=== PATIENT | female | born 1970 | race Hispanic/Latino ===

== ENCOUNTER 2016-09-28 17:27 | Emergency (ER) | payer OTHER ==
[2016-09-28 17:42] VITALS: TEMP 97.4
--- NOTE | 2016-09-28 17:53 | ED.PDOC ---
History of Present Illness - General Chief Complaint: Cardiovascular Problem Stated Complaint: headache Time Seen by Provider: 09/28/16 17:45 Source: patient Exam Limitations: no limitations - History of Present Illness Initial Comments: The patient is a 46-year-old female presenting to the emergency room secondary to persistent headache and persistent mild to moderate elevation in her blood pressure. The patient went to her primary care doctor and received injections of what I believe was Toradol and Phenergan this morning for her headache. She went home and slept and the headache was better for a little while but it has come back this afternoon. No nausea or vomiting or abdominal pain or chest pain today but the patient did have some mild nausea and vomiting yesterday with some substernal chest pain radiating to her back yesterday that coincided with the nausea and vomiting. No leg pain or swelling. No shortness of breath. No syncope or near syncope. She does not think that she has had a fever. She does not normally have heartburn problems. She is on a butrans patch for chronic pain. she did recently have this dose increased. Blood pressures have been in the 160s over 100s. She is also a type II diabetic but has not checked her blood sugar today. Apparently her blood sugars were good yesterday. she reports that she has had migraines but not has not had any formal neurological workup to that end and does not have any medications dedicated for treatment of that problem. Timing/Duration: 4-6 hours Severity: moderate Improving Factors: nothing Worsening Factors: nothing Associated Symptoms: headaches, loss of appetite, malaise, nausea/vomiting Allergies/Adverse Reactions: Allergies NO KNOWN ALLERGY Allergy (Verified 01/30/16 17:12) Home Medications: Ambulatory Orders Citalopram Hydrobromide 20 mg PO DAILY 12/14/14 Lisinopril/Hctz 20-12.5 mg [Zestoretic 20/12.5] 1 ea PO DAILY 12/14/14 Metformin HCl 500 mg PO BID 12/14/14 Oxycodone W/ Acetaminophen [Oxycodone/Acetaminophen] 1 tab PO Q4H PRN 12/14/14 Trazodone HCl 150 mg PO BEDTIME 12/14/14 tiZANidine [Zanaflex] 4 mg PO TID PRN 12/14/14 Gabapentin [Neurontin] 600 mg PO TID 01/30/16 Levothyroxine Sodium [Synthroid] 75 mcg PO DAILY 01/30/16 Meloxicam [Mobic] 15 mg PO DAILY #15 tab 01/30/16 Review of Systems - Review of Systems Constitutional: States: malaise EENTM: States: no symptoms reported Respiratory: States: no symptoms reported Cardiology: States: chest pain - yesterday brieflywith nausea and vomiting Gastrointestinal/Abdominal: States: nausea, vomiting Genitourinary: States: no symptoms reported Musculoskeletal: States: no symptoms reported Skin: States: no symptoms reported Neurological: States: headache Endocrine: States: no symptoms reported All other Systems: No Change from Baseline Past Medical History (General) - Patient Medical History Hx Seizures: No Hx Stroke: No Hx Dementia: No Hx Asthma: No Hx of COPD: No Hx Cardiac Disorders: No Hx Congestive Heart Failure: No Hx Pacemaker: No Hx Hypertension: Yes Hx Thyroid Disease: Yes Hx Diabetes: Yes Hx Gastroesophageal Reflux: Yes Hx Renal Disease: No Hx Cancer: No Hx of HIV: No Hx Hepatitis C: No Hx MRSA: No - Vaccination History Hx Tetanus, Diphtheria Vaccination: No Hx Influenza Vaccination: Yes - 2015 Hx Pneumococcal Vaccination: Yes - Social History Hx Tobacco Use: Yes Hx Chewing Tobacco Use: No Hx Alcohol Use: No Hx Substance Use: No Hx Substance Use Treatment: No Hx Depression: Yes Hx Physical Abuse: No Hx Emotional Abuse: No Family Medical History - Family History Mother Living Status: Hx Family Cancer: Yes - lung cancer Physical Exam - Physical Exam General Appearance: Alert, Comfortable, No apparent distress Eye Exam: bilateral normal Ears, Nose, Throat: hearing grossly normal, normal ENT inspection, normal pharynx Neck: non-tender, full range of motion, supple Respiratory: chest non-tender, lungs clear, normal breath sounds, no respiratory distress, no accessory muscle use Cardiovascular/Chest: normal peripheral pulses, regular rate, rhythm, no edema Peripheral Pulses: radial,right: 2+, radial,left: 2+, dorsalis pedis,right: 2+, dorsalis pedis,left: 2+, posterior tibialis,right: 2+, posterior tibialis,left: 2+ Gastrointestinal/Abdominal: non tender, soft Rectal Exam: deferred Back Exam: normal inspection, no CVA tenderness, no vertebral tenderness Extremity: normal range of motion, non-tender, normal inspection, no pedal edema , normal capillary refill 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 The patient received a liter of IV fluids along with several medications and is feeling significantly better at this time. She needs to keep well hydrated and follow blood sugars closely. Gastrointestinal symptoms seem to have resolved. She needs to try and get a good night sleep. She should follow-up with her primary care doctor tomorrow or the next day. ER warnings were given for any acute worsening. Lab work is reassuring here today. Blood pressures are mildly elevated today and should be followed with her primary care doctor. additional medications do not appear to be warranted at this time. 09/28/16 18:45 - Results/Orders Results/Orders: Laboratory Tests 09/28/16 09/28/16 09/28/16 17:46 18:00 18:00 WBC RBC Hgb Hct MCV MCH MCHC RDW Plt Count MPV Absolute Neuts (auto) Absolute Lymphs (auto) Absolute Monos (auto) Absolute Eos (auto) Absolute Basos (auto) Neutrophils % Lymphocytes % Monocytes % Eosinophils % Basophils % Sodium 138 Potassium 3.9 Chloride 105 Carbon Dioxide 24 Anion Gap 12.9 BUN 19 H Creatinine 0.72 BUN/Creatinine Ratio 26.4 H Random Glucose 181 H Serum Osmolality 282.5 Calcium 9.1 Total Bilirubin 0.6 AST 19 ALT 12 Alkaline Phosphatase 43 Creatine Kinase 41 CK-MB (CK-2) 0.9 CK-MB (CK-2) % Not Reportable Troponin I < 0.02 Serum Total Protein 6.8 Albumin 3.7 Globulin 3.1 Albumin/Globulin Ratio 1.2 Amylase 53 Lipase 27 Serum HCG, Qual Negative Urine HCG, Qual Cancelled 09/28/16 18:00 WBC 7.5 RBC 5.33 Hgb 15.2 Hct 46.1 MCV 86.4 MCH 28.6 MCHC 33.1 RDW 13.8 Plt Count 264 MPV 7.8 Absolute Neuts (auto) 4.40 Absolute Lymphs (auto) 2.40 Absolute Monos (auto) 0.60 Absolute Eos (auto) 0.10 Absolute Basos (auto) 0.10 Neutrophils % 57.9 Lymphocytes % 31.3 Monocytes % 7.9 Eosinophils % 2.0 Basophils % 0.9 Sodium Potassium Chloride Carbon Dioxide Anion Gap BUN Creatinine BUN/Creatinine Ratio Random Glucose Serum Osmolality Calcium Total Bilirubin AST ALT Alkaline Phosphatase Creatine Kinase CK-MB (CK-2) CK-MB (CK-2) % Troponin I Serum Total Protein Albumin Globulin Albumin/Globulin Ratio Amylase Lipase Serum HCG, Qual Urine HCG, Qual Departure - Departure Clinical Impression: Dehydration, mild Headache, tension-type Qualifiers: Headache chronicity pattern: acute headache Intractability: not intractable Qualified Code(s): G44.209 - Tension-type headache, unspecified, not intractable Disposition: Discharge to Home or Self Care Condition: Fair Departure Forms: ED Discharge - Pt. Copy, Patient Portal Self Enrollment Instructions: Tension Headache, DI for Viral Gastroenteritis -- Adult Diet: diabetic diet Referrals: Nicolette Painting NP [Primary Care Provider] - 1-2 Weeks Home Medications: Ambulatory Orders Citalopram Hydrobromide 20 mg PO DAILY 12/14/14 Lisinopril/Hctz 20-12.5 mg [Zestoretic 20/12.5] 1 ea PO DAILY 12/14/14 Metformin HCl 500 mg PO BID 12/14/14 Oxycodone W/ Acetaminophen [Oxycodone/Acetaminophen] 1 tab PO Q4H PRN 12/14/14 Trazodone HCl 150 mg PO BEDTIME 12/14/14 tiZANidine [Zanaflex] 4 mg PO TID PRN 12/14/14 Gabapentin [Neurontin] 600 mg PO TID 01/30/16 Levothyroxine Sodium [Synthroid] 75 mcg PO DAILY 01/30/16 Meloxicam [Mobic] 15 mg PO DAILY #15 tab 01/30/16 Additional Instructions: The patient is a 46-year-old female presenting with a headache today after having symptoms of gastroenteritis yesterday. The patient received a liter of IV fluids along with several medications and is feeling significantly better at this time. She needs to keep well hydrated and follow blood sugars closely. Gastrointestinal symptoms seem to have resolved. She needs to try and get a good night sleep. She should follow-up with her primary care doctor tomorrow or the next day. ER warnings were given for any acute worsening. Lab work is reassuring here today. Blood pressures are mildly elevated today and should be followed with her primary care doctor. additional medications do not appear to be warranted at this time.
[2016-09-28] MEDS: ACETAMINOPHEN 325 MG TAB PO ONE (17:55)
[2016-09-28] MEDS: SODIUM CHLORIDE 0.9% 1000ML 1,000 ML IVS ONE (17:55)
[2016-09-28] MEDS: METOCLOPRAMIDE HCL INJ 10 MG/2 ML VIAL IV ONE (17:55)
[2016-09-28] MEDS: KETOROLAC TROMETHAMINE INJ 30 MG/ML VIAL IV ONE (17:56)
[2016-09-28 18:58] VITALS: O2SAT 98
[2016-09-28 19:00] VITALS: BP 154/98
== END 2016-09-28 18:59 | disposition home or self-care (01) ==
LOC: ER 17:27
DX: G44.209 Tension-type headache, unspecified, not intractable (principal); E86.0 Dehydration; I10 Essential (primary) hypertension; E07.9 Disorder of thyroid, unspecified; E11.9 Type 2 diabetes mellitus without complications; K21.9 Gastro-esophageal reflux disease without esophagitis; Z87.891 Personal history of nicotine dependence; Z80.1 Family history of malignant neoplasm of trachea, bronchus and lung; Z79.899 Other long term (current) drug therapy
CPT/HCPCS: 36415; 80053; 81001; 82150; 82550; 82553; 83690; 84484; 84703; 85025; 87086; 87088; 87186; J1885; J2765; J7030

== ENCOUNTER → 2016-10-29 | Outpatient (CLI) | payer OTHER | END | disposition home or self-care (01) | LOC: LAB.O 15:24 | PROVIDERS: ATTEND Psychiatry & Neurology Neurology | DX: M45.0 Ankylosing spondylitis of multiple sites in spine (principal); M35.1 Other overlap syndromes; E11.9 Type 2 diabetes mellitus without complications; M54.12 Radiculopathy, cervical region ==